=== PATIENT | male | born 1950 | race Caucasian/White ===

== ENCOUNTER → 2016-09-22 | Outpatient (CLI) | payer OTHER ==
--- NOTE | 2016-09-22 10:57 | KCIC ---
MRI right knee dated 09/22/2016 10:15 AM Indication: Anterior knee pain since May , pain worsening over the last couple weeks. No known injury. Pain Comparison: No comparison is available. Technique: Routine multiplanar multisequence imaging performed. No contrast administered. Findings: Bone marrow signal is homogeneous. No marrow edema. Mild tricompartmental hypertrophic change with thinning and surface irregularity of the articular cartilage no full-thickness osteochondral defect. Small joint effusion. No significant popliteal cyst. No intra-articular loose body. Anterior cruciate and posterior cruciate ligaments are intact. Medial and lateral collateral complexes are intact. Iliotibial band, popliteus tendon and pes anserine complex within normal limits. Quadriceps and patellar tendon are intact. There is mild increased signal within the substance of the proximal and distal patellar tendon. No abnormality of the medial or lateral retinaculum. There is an oblique linear defect at the medial meniscal body that extends to the tibial articular surface on several coronal slices. There is also blunting of the free edge of the medial meniscal body. Small horizontal oblique component and at the posterior horn extends to the tibial articular surface. Anterior horn is intact. There is some linear increased signal at the anterior horn of lateral meniscus that does not definitely reach an articular surface. Posterior horn and body are intact. IMPRESSION: 1. Complex tear posterior horn and body of medial meniscus. 2. Linear signal at the anterior horn of the lateral meniscus does not meet strict criteria for meniscal tear and is likely related to early mucoid degeneration. 3. Mild tricompartmental degenerative arthrosis and chondromalacia. 4. Small joint effusion. 5. Mild patellar tendinosis. Electronically signed by: Flaco Lora MD (09/22/2016 10:53 AM) [facility]
== END | disposition home or self-care (01) ==
LOC: KCIC MRI 09:48
DX: M17.11 Unilateral primary osteoarthritis, right knee (principal); M94.261 Chondromalacia, right knee; M25.461 Effusion, right knee
CPT/HCPCS: 73721

== ENCOUNTER → 2017-07-07 | Outpatient (CLI) | payer OTHER ==
[2017-07-08] MEDS: REGADENOSON 0.4 MG/5 ML DISP.SYRIN. IV (09:14)
== END | disposition home or self-care (01) ==
LOC: NM 07:21
DX: I48.91 Unspecified atrial fibrillation (principal); I51.7 Cardiomegaly; E66.9 Obesity, unspecified
CPT/HCPCS: 78452; 96374; 96375; A9500; J2785

== ENCOUNTER → 2017-07-08 | Outpatient (CLI) | payer OTHER | END | disposition home or self-care (01) | LOC: ECHO 07:53 | DX: I48.91 Unspecified atrial fibrillation (principal); E66.01 Morbid (severe) obesity due to excess calories; I27.20 Pulmonary hypertension, unspecified; R06.00 Dyspnea, unspecified | CPT/HCPCS: 93017; 93306; 96376 ==

== ENCOUNTER 2017-08-31 10:08 | Day surgery (SDC) | payer OTHER ==
[~2017-08-31 10:08] MED LIST: LIDOCAINE 1% PF 2 ML VIAL. ID; MORPHINE SULFATE 2 MG/ML DISP.SYRIN. IV; ONDANSETRON PF 4 MG/2 ML VIAL. IV; PROCHLORPERAZINE 10 MG/2 ML VIAL. IV; fentaNYL PF VIAL 100 MCG/2 ML VIAL IV
[2017-08-31] MEDS: IV RINGERS,LACTATED 1000ML 1,000 ML IV (10:45)
[2017-08-31] MEDS ORDERED: PROPOFOL 20 ML IV (11:21)
== END 2017-08-31 12:35 | disposition home or self-care (01) ==
LOC: SURG 10:08
DX: I48.91 Unspecified atrial fibrillation (principal); I10 Essential (primary) hypertension; E78.00 Pure hypercholesterolemia, unspecified; G47.33 Obstructive sleep apnea (adult) (pediatric); I51.7 Cardiomegaly; M10.9 Gout, unspecified; I87.2 Venous insufficiency (chronic) (peripheral); Z90.49 Acquired absence of other specified parts of digestive tract; Z79.899 Other long term (current) drug therapy; Z72.89 Other problems related to lifestyle; Z98.890 Other specified postprocedural states
CPT/HCPCS: 92960; 93005; J2704

== ENCOUNTER → 2017-10-20 | Day surgery (SDC) | payer OTHER ==
[~2017-10-20] MED LIST changes: +ALLO300T PO; +AMLO10TA2 PO; +ATOR10TA60 PO; +DABI150C PO; +FURO40TA4 PO; +GLUC1CAP48 PO; +IV RINGERS,LACTATED 1000ML 1,000 ML IV SCH; -LIDOCAINE 1% PF 2 ML VIAL. ID; +LIDOCAINE 2% PF Vial for OR 5 ML VIAL. ONE; +METO-239 PO; -MORPHINE SULFATE 2 MG/ML DISP.SYRIN. IV; +MULT1TAB52 PO; +OLME40TA12 PO; +OMEG-165 PO; -ONDANSETRON PF 4 MG/2 ML VIAL. IV; -PROCHLORPERAZINE 10 MG/2 ML VIAL. IV; +PROPOFOL 40 ML IV ONE; +TRIA1TAB5 PO; +VALS320T2 PO; -fentaNYL PF VIAL 100 MCG/2 ML VIAL IV
[2017-10-20 08:19] VITALS: BP 118/68
== END | disposition home or self-care (01) ==
LOC: ENDOS 06:18
PROVIDERS: ATTEND Internal Medicine Gastroenterology
DX: Z12.11 Encounter for screening for malignant neoplasm of colon (principal); K64.0 First degree hemorrhoids; Z91.030 Bee allergy status; I10 Essential (primary) hypertension; Z85.828 Personal history of other malignant neoplasm of skin; G47.30 Sleep apnea, unspecified; Z72.89 Other problems related to lifestyle; Z79.899 Other long term (current) drug therapy; Z90.49 Acquired absence of other specified parts of digestive tract; I48.91 Unspecified atrial fibrillation
CPT/HCPCS: 45378; J2001; J2704

== ENCOUNTER → 2018-09-28 | Outpatient (CLI) | payer MEDICARE, OTHER ==
[2017-10-20 08:19] VITALS: BP 118/68
[~2018-09-28] MED LIST changes: -AMLO10TA2 PO; +AMLO10TA8 PO; -IV RINGERS,LACTATED 1000ML 1,000 ML IV SCH; -LIDOCAINE 2% PF Vial for OR 5 ML VIAL. ONE; -PROPOFOL 40 ML IV ONE
--- NOTE | 2018-09-28 10:17 | CARD ---
MR#: [id number] Date of Study: 09/28/2018 Ordering Physician: CHRISTI SANTIAGO, Referring Physician: CHRISTI SANTIAGO, Tech: Angle Black APPROVED REPORT EXAM: Two-dimensional and M-mode echocardiogram with Doppler and color Doppler. Other Information Quality : AverageHR: 56bpm Technically limited study due to body habitus. INDICATION Atrial Fibrillation RISK FACTORS Hypertension 2D DIMENSIONS RVDd2.8 (2.9-3.5cm)Left Atrium(2D)4.5 (1.6-4.0cm) IVSd1.5 (0.7-1.1cm)Aortic Root(2D)3.4 (2.0-3.7cm) LVDd5.8 (3.9-5.9cm)LVOT Diameter2.2 (1.8-2.4cm) PWd1.3 (0.7-1.1cm)LVDs3.6 (2.5-4.0cm) FS (%) 38.6 %SV115.3 ml LVEF(%)68.1 (>50%) Aortic Valve AoV Peak Matt.162.8cm/sAoV VTI36.7cm AO Peak GR.10.6mmHgLVOT Peak Matt.101.9cm/s LVOT VTI 24.95cmAO Mean GR.6mmHg DILAN (VMAX)1.85mw5EEI (VTI)2.55cm2 Mitral Valve MV E Etkjiykp93.1cm/sMV DECEL OCUN088yw MV A Eyedhnva88.8cm/sMV RIS80du E/A Ratio1.1MVA (PHT)3.61cm2 TDI E/Lateral E'7.4E/Medial E'5.4 Pulmonary Valve PV Peak Ntkhcpsp927.1cm/sPV Peak Grad.4mmHg Tricuspid Valve TR P. Dmchvoej418aa/sRAP DIFWWBMI6kfWx TR Peak Gr.80yrLiWUFX91qzZp Pulmonary Vein S1 Zczkwpah79.7cm/sD2 Ijxtgsfv34.2cm/s PVa feccoxvl421tlvn LEFT VENTRICLE The left ventricle is normal size. There is moderate concentric left ventricular hypertrophy. The lef t ventricular systolic function is normal and the ejection fraction is within normal range. The Eject ion Fraction is 50-55%. There is grossly normal LV segmental wall motion. Transmitral Doppler flow pa ttern is Grade II-pseudonormal filling dynamics. RIGHT VENTRICLE The right ventricle is borderline dilated. There is normal right ventricular wall thickness. The righ t ventricular systolic function is normal. ATRIA The left atrium is moderately dilated. The right atrium is mildly dilated. The interatrial septum is intact with no evidence for an atrial septal defect or patent foramen ovale as noted on 2-D or Dopple r imaging. AORTIC VALVE The aortic valve is normal in structure and function. Doppler and Color Flow revealed no significant aortic regurgitation. There is no significant aortic valvular stenosis. MITRAL VALVE The mitral valve is normal in structure and function. There is no evidence of mitral valve prolapse. There is no mitral valve stenosis. Doppler and Color-flow revealed trace mitral regurgitation. TRICUSPID VALVE The tricuspid valve is normal in structure and function. Doppler and Color Flow revealed trace tricus pid regurgitation with an estimated PAP of 26 mmHg. There is no tricuspid valve stenosis. PULMONIC VALVE The pulmonic valve is not well visualized. Doppler and Color Flow revealed no pulmonic valvular regur gitation. There is no pulmonic valvular stenosis. GREAT VESSELS The aortic root is normal in size. The IVC is normal in size and collapses >50% with inspiration. PERICARDIAL EFFUSION There is no evidence of significant pericardial effusion. Critical Notification Critical Value: No <Conclusion> The left ventricular systolic function is normal and the ejection fraction is within normal range. Th e Ejection Fraction is 50-55%. There is grossly normal LV segmental wall motion. Signed by : Praful Michael, Electronically Approved : 09/28/2018 10:17:03
== END | disposition home or self-care (01) ==
LOC: ECHO 07:38
PROVIDERS: ATTEND Internal Medicine Cardiovascular Disease
DX: I51.7 Cardiomegaly (principal); I48.91 Unspecified atrial fibrillation
CPT/HCPCS: 93306

== ENCOUNTER → 2019-10-12 | Outpatient (CLI) | payer MEDICARE, OTHER ==
[2017-10-20 08:19] VITALS: BP 118/68
[~2019-10-12] MED LIST changes: +MULT-445 PO; -MULT1TAB52 PO
--- NOTE | 2019-10-13 09:03 | CARD ---
MR#: [id number] Date of Study: 10/12/2019 Ordering Physician: CHRISTI SANTIAGO, Referring Physician: CHRISTI SANTIAGO, Tech: Angle Black APPROVED REPORT EXAM: Two-dimensional and M-mode echocardiogram with Doppler and color Doppler. Other Information Quality : FairHR: 54bpm Technically limited study due to body habitus. INDICATION Atrial Fibrillation RISK FACTORS Hypertension Hyperlipidemia 2D DIMENSIONS RVDd4.8 (2.9-3.5cm)Left Atrium(2D)4.8 (1.6-4.0cm) IVSd1.4 (0.7-1.1cm)Aortic Root(2D)3.8 (2.0-3.7cm) LVDd5.8 (3.9-5.9cm)LVOT Diameter2.1 (1.8-2.4cm) PWd1.2 (0.7-1.1cm)LVDs2.9 (2.5-4.0cm) FS (%) 49.4 %SV130.8 ml Aortic Valve AoV Peak Matt.156.2cm/sAoV VTI30.7cm AO Peak GR.9.8mmHgLVOT Peak Matt.75.5cm/s LVOT VTI 17.96cmAO Mean GR.5mmHg DILAN (VMAX)1.23yp6XGP (VTI)2.00cm2 Mitral Valve MV E Agzrquuy33.4cm/sMV DECEL GQWZ140lg MV A Irqnaywq50.7cm/sMV E Mean Gr.1mmHg MV DJD25xaO/A Ratio0.9 MVA (PHT)3.16cm2 TDI E/Lateral E'9.6E/Medial E'9.8 Pulmonary Valve PV Peak Rfpozydz50.8cm/sPV Peak Grad.4mmHg Tricuspid Valve TR P. Ncfmscvo083wp/sRAP NWFQFAPE1rwNm TR Peak Gr.13ugOpDBON74tfEh Pulmonary Vein S1 Titgezxa55.8cm/sD2 Rvkopwwv49.3cm/s PVa kccqmwab967miar LEFT VENTRICLE The left ventricle is normal size. There is mild concentric left ventricular hypertrophy. The left ve ntricular systolic function is normal and the ejection fraction is within normal range. The Ejection Fraction is 55-60%. There is normal LV segmental wall motion. Transmitral Doppler flow pattern is Gra de I-abnormal relaxation pattern. RIGHT VENTRICLE The right ventricle is borderline dilated. There is normal right ventricular wall thickness. The righ t ventricular systolic function is normal. ATRIA The left atrium size is normal. The right atrium is borderline dilated. The interatrial septum is int act with no evidence for an atrial septal defect or patent foramen ovale as noted on 2-D or Doppler i maging. AORTIC VALVE The aortic valve is thickened but opens well. Doppler and Color Flow revealed no significant aortic r egurgitation. There is no significant aortic valvular stenosis. Calculated aortic valve area is 1.74 cm2 with maximum pressure gradient of 14 mmHg and mean pressure gradient of 6 mmHg. MITRAL VALVE The mitral valve is normal in structure and function. There is no evidence of mitral valve prolapse. There is no mitral valve stenosis. Doppler and Color-flow revealed trace mitral regurgitation. TRICUSPID VALVE The tricuspid valve is normal in structure and function. Doppler and Color Flow revealed trace tricus pid regurgitation with an estimated PAP of 28 mmHg. There is no tricuspid valve stenosis. PULMONIC VALVE The pulmonic valve is not well visualized. Doppler and Color Flow revealed no pulmonic valvular regur gitation. GREAT VESSELS The aortic root is normal in size. The ascending aorta is normal in size. The IVC was not visualized. PERICARDIAL EFFUSION There is no evidence of significant pericardial effusion. Critical Notification Critical Value: No <Conclusion> The left ventricle is normal size. The left ventricular systolic function is normal and the ejection fraction is within normal range. The Ejection Fraction is 55-60%. There is mild concentric left ventricular hypertrophy. Doppler and Color Flow revealed no significant aortic regurgitation. There is no significant aortic valvular stenosis. Doppler and Color-flow revealed trace mitral regurgitation. Doppler and Color Flow revealed trace tricuspid regurgitation with an estimated PAP of 28 mmHg. Signed by : Uli White MD Electronically Approved : 10/13/2019 09:03:26
== END | disposition home or self-care (01) ==
LOC: ECHO 07:39
PROVIDERS: ATTEND Internal Medicine Cardiovascular Disease
DX: I48.91 Unspecified atrial fibrillation (principal); I51.7 Cardiomegaly
CPT/HCPCS: 93306

== ENCOUNTER → 2020-07-03 | Outpatient (CLI) | payer MEDICARE, OTHER ==
[2017-10-20 08:19] VITALS: BP 118/68
[~2020-07-03] MED LIST changes: +AMLO-187 PO; -AMLO10TA8 PO
--- NOTE | 2020-07-03 14:19 | KCIC ---
MRI of the lumbar spine without contrast 07/03/2020 CLINICAL HISTORY: Low back pain which radiates down both legs. TECHNIQUE: Unenhanced T1-weighted and T2-weighted sagittal and axial and inversion recovery sagittal images of the lumbar spine were obtained. FINDINGS: Minimal S-shaped curvature of the thoracolumbar spine is seen. Degenerative signal changes are seen involving all of the disks of the lumbar spine. Degenerative signal changes are seen within the marrow surrounding these discs. The conus medullaris is normal morphology, position, and signal c haracteristics. Increased signal intensity which may reflect edema associated with a strain type injury is seen withi n the left paraspinal musculature on the T2-weighted and inversion recovery images. At the L1-2 disc space there is a mild generalized disc bulge. Degenerative changes are seen involvin g the facet joints bilaterally. These findings do not result in significant central spinal canal or n eural foraminal stenosis. At the L2-3 disc space there is a mild generalized disc bulge. Degenerative changes are seen involvin g the facet joints bilaterally. There is mild ligamentum flavum hypertrophy bilaterally. There are sm all facet joint effusions bilaterally. These findings when combined result in mild central spinal can al stenosis. No neural foraminal stenosis is seen. At the L3-4 disc space there is a mild generalized disc bulge. Degenerative changes are seen involvin g the facet joints bilaterally. There are small facet joint effusions bilaterally. There is mild liga mentum flavum hypertrophy bilaterally. There is prominence of the posterior epidural fat. These findi ngs when combined result in mild central spinal canal stenosis. No neural foraminal stenosis is seen. At the L4-5 disc space there is a mild to moderate generalized disc bulge. Superimposed on this disc bulge is a focal central disc herniation. This measures 6 mm in AP diameter. Degenerative changes are seen involving the facet joints bilaterally. There is moderate ligamentum flavum hypertrophy bilater ally. There are small facet joint effusions bilaterally. These findings when combined result in sever e central spinal canal stenosis. No neural foraminal stenosis is seen. At the L5-S1 disc space there is a minimal generalized disc bulge. Degenerative changes are seen invo lving the facet joints bilaterally. These findings when combined do not result in significant central spinal canal or neural foraminal stenosis. IMPRESSION: The changes of degenerative disc disease are seen throughout the lumbar spine. These find ings result in mild central spinal canal stenosis at L2-3 and L3-4 and severe central spinal canal st enosis at L4-5. No neural foraminal stenosis is seen. Electronically signed by: Go Landin MD (07/03/2020 2:16 PM) [id number]
== END ==
LOC: KCIC MRI 09:55
PROVIDERS: ATTEND Physician Assistant
DX: M47.27 Other spondylosis with radiculopathy, lumbosacral region (principal); M48.061 Spinal stenosis, lumbar region without neurogenic claudication; G57.90 Unspecified mononeuropathy of unspecified lower limb; M51.36 Other intervertebral disc degeneration, lumbar region
CPT/HCPCS: 72148

== ENCOUNTER → 2020-07-24 | Outpatient (CLI) | payer MEDICARE, OTHER ==
[2017-10-20 08:19] VITALS: BP 118/68
--- NOTE | 2020-07-24 12:58 | PDOC1 ---
INITIAL PAIN CONSULT DATE OF SERVICE: DOS: DATE: 07/24/20 TIME: 12:51 CHIEF COMPLAINT: Chief Complaint: Low back and bilateral lower extremity pain HISTORY OF PRESENT ILLNESS: 69-year-old male presents with history of pain low back bilateral lower extremities right greater than left present for about 3 months not sure if any specific injury or accident that he is aware of but he was on vacation and slept in a hotel bed which was very soft and seemed to aggravate his pain in his back and his legs significantly since that time about 3 months ago is beginning worse patient reports his pain in the low back bilateral lower extremities rating the posterior gluteus posterior thighs lateral thighs anterior thighs medial thighs as well as the soles of the feet and the top of the feet at x2 with some numbness and tingling in both of the feet patient reports is worse with walking standing changing positions bending or stooping also worse with prolonged sitting but generally better with laying down generally is not awakening from sleep side effects bowel bladder control but does affect his ability to walk average not use any assistive devices. Patient has had some chiropractic treatment in the past and this has been helpful has not had any recently however but has been doing some stretching and strengthening exercises on his own daily at least twice a day which she feels helps mildly patient has taken Flexeril which was not helpful as well patient reports his disability rating is a nine on a scale of 10 family home responsibilities nine with recreation sexual behavior six with social activity occupation and life support activities. Patient reports no loss of motor function but significant fatigability and weakness in the lower extremities with ambulation. Patient scribes pain is constant the back shooting in the legs with numbness and tingling in the feet radiating as described again worse on the right than the left and present bilaterally. Patient had MRI scan lumbar spine showing degenerative disc disease throughout the lumbar spine with finding and mild central spinal canal stenosis at L2-3 and L3-4 and severe central spinal canal stenosis L4-5 with moderate generalized disc bulge at L4-5 with a focal disc herniation centrally. PAST MEDICAL HISTORY: PMH: Arthritis, atrial fibrillation hypertension, basal cell carcinoma PREVIOUS SURGERIES: Past Surgical Hx: Bilateral catheter extractions and cholecystectomy CURRENT MEDICATIONS: Current Meds: Active Scripts Medications Dose Route/Sig Max Daily Dose Days Date Category Benicar (Olmesartan Medoxomil) 40 Mg Tablet 40 Mg PO DAILY 10/20/17 Reported Pradaxa (Dabigatran Etexilate Mesylate) 150 Mg Capsule 1 Cap PO BID 08/30/17 Reported Multivitamins (Multivitamin) 1 Each Tablet 1 Each PO 07/07/17 Reported Fish Oil 1,000 mg Softgel ([place]-3S/Dha/Epa/Fish Oil) 1 Each Capsule 1 Each PO 07/07/17 Reported Glucosamine & Chondroitin Cap (Gluc 2KCL/Chondr/Oleksandr Hy/Hy Ac) 1 Each Capsule 1 Each PO 07/07/17 Reported Metoprolol Succinate ( Xl ) (Metoprolol Succinate) 25 Mg Tab.er.24h 25 Mg PO DAILY 07/07/17 Reported Allopurinol 300 Mg Tablet 300 Mg PO DAILY 07/07/17 Reported Triamterene-Hctz 75-50 Mg Tab (Triamterene/Hydrochlorothiazid) 1 Each Tablet 1 Tab PO DAILY 07/07/17 Reported Atorvastatin Calcium 10 Mg Tablet 10 Mg PO DAILY 07/07/17 Reported Furosemide 40 Mg Tablet 40 Mg PO DAILY 07/07/17 Reported Amlodipine Besylate 10 Mg Tablet 10 Mg PO DAILY 07/07/17 Reported ALLERGIES; Allergies: Coded Allergies: bee venom protein (honey bee) (Verified Allergy, Severe, ANAPHYLAXIS, 10/20/17) FAMILY HISTORY: Family Hx: No major medical problems or conditions that patient is aware of. SOCIAL HISTORY: Social Hx: Patient drinks alcohol occasionally but only socially does not smoke does not use any illegal illicit or recreational drugs is lives with his spouse and one child living home locally in [facility] REVIEW OF SYSTEMS: ROS: Positive for those items mentioned in history of present illness, all systems are reviewed, otherwise negative ,and are complete full and well-documented on patient's chart. PHYSICAL EXAM: VS: Blood pressure is 136/74 pulse 62 respirations 18 temperature 98.5 F height 6 foot three inches weight is 384 pounds PE: PHYSICAL EXAMINATION: GENERAL: The patient is awake, alert, oriented, appropriate, very pleasant demeanor HEENT: Shows normocephalic, atraumatic. Extraocular movements are intact and symmetrical. Oral cavity: Mucous membranes moist and pink. Dentition is intact. NECK: Shows anterior throat supple without palpable lymphadenopathy noted. Swallow reflex symmetrical. CHEST: Shows normal on inspection. Breath sounds are clear bilaterally, distant but no rales rhonchi or wheezes auscultated. HEART: Shows S1, S2 clear. No murmurs auscultated. ABDOMEN: Soft, nontender, nondistended. No palpable organomegaly is noted. No rebound or guarding demonstrated. BACK: Shows spine grossly in the midline. Normal-appearing cervical lordotic curvature. There is mildly increased thoracic kyphosis, some flattening of the lumbar lordotic curvature. Lumbar paraspinous muscles show symmetrical on inspection, on palpation shows some moderate tenderness diffusely throughout the upper, middle and lower distribution of the paraspinous muscles bilaterally and also into the lower thoracic paraspinous musculature, firm and tender, but without specific trigger points, without radiation of pain. The patient has good rotational motion of the lumbar spine, both laterally as well as extension and flexion without significant difficulty. No tenderness over the spinous processes, sacrum or sacroiliac regions. EXTREMITIES: Lower extremities show deep tendon reflexes 2+ in the patellar and tendo calcaneus tendons. Motor exam is four on a scale of 5 with right dorsiflexion, extension, quadriceps and hamstring flexion and five/5 on the left. Peripheral pulses are 1+ posterior tibial. No peripheral edema is noted bilaterally. Lower extremities are warm and dry to touch, equal in color and appearance. Straight leg raise noted to be positive on the right about 45 degrees, left side is negative. Gaenslen's and Cyrus's maneuvers are negative bilaterally as well. The patient is able to stand, stand on his toes that s ignificant difficulty loss of balance, walks with a normal-appearing gait does not appear to favor the right or left lower extremity significantly and is not use any assistive device such as canes or walkers to ambulate. SKIN: Shows warm and dry, good turgor. No edema. No sores, rashes or bruising throughout. IMPRESSION: Impression: 69-year-old male with 3-month history increasing pain low back bilateral lower extremities right greater than left in a radicular fashion following L4-5 dermatomal distribution. MRI scan lumbar spine as noted Obesity Arthritis Hypertension History of atrial fibrillation Plan: Options were discussed with the patient including conservative medical management is continued physical therapies and interventional techniques. Patient likes interventional techniques. We discussed a lumbar epidural steroid injection using description as well as anatomical models to describe the procedure. We will check with patient's key carrier to see if it is cleared to hold his Pradaxa for 2 days prior to potential injection. If this is deemed safe and appropriate we will have him hold this and return for lumbar epidural steroid injection at that time. In the meantime, patient will continue with stretching strength exercise at home as well as oral analgesics and anti- inflammatories as currently. Patient also given prescription for hydrocodone 5 mg with instructions and side effects to be aware of discussed as well. ELENA DELCID MD Jul 24, 2020 12:58
== END | disposition home or self-care (01) ==
LOC: PNCL 08:44
PROVIDERS: ATTEND Anesthesiology
DX: M54.5 Low back pain (principal); M79.605 Pain in left leg; M79.604 Pain in right leg; M19.90 Unspecified osteoarthritis, unspecified site; I48.91 Unspecified atrial fibrillation; E66.9 Obesity, unspecified; I10 Essential (primary) hypertension; E78.00 Pure hypercholesterolemia, unspecified; M10.9 Gout, unspecified; G47.30 Sleep apnea, unspecified; Z90.49 Acquired absence of other specified parts of digestive tract; Z98.890 Other specified postprocedural states; Z79.899 Other long term (current) drug therapy; Z87.891 Personal history of nicotine dependence; Z88.8 Allergy status to other drugs, medicaments and biological substances
CPT/HCPCS: G0463

== ENCOUNTER → 2020-08-09 | Outpatient (CLI) | payer MEDICARE, OTHER ==
[2017-10-20 08:19] VITALS: BP 118/68
[~2020-08-09] MED LIST changes: +HYDR-2761 PO; +IOHEXOL 180 MG/ML 10 ML VIAL. ONE; +methylPREDNISolone ACETATE 40 MG/ML VIAL. ONE; +methylPREDNISolone ACETATE 80 MG/ML VIAL. ONE
--- NOTE | 2020-08-09 08:49 | PDOC ---
Progress Note - Pain Clinic Date of Service: DOS: DATE: 08/09/20 TIME: 08:46 Diagnosis: Dx: Lumbar radiculopathy with lumbar degenerative disc disease lumbar spinal stenosis and lumbar herniated disc History or Present Illness: HPI: 69-year-old male returns for follow-up status post initial evaluation and clearance to hold his Pradaxa has been off this now for 3 days and would like to proceed with a lumbar epidural steroid injection and we had discussed earlier. Patient reports still significant pain low back bilateral lower extremities posterior gluteus posterior lateral thigh lateral anterior thighs anteromedial thighs medial calves posterior calves and the soles of the feet bilaterally patient reports that sharp and stabbing the back radiating shooting lower extremities rated as a 10 on scale 10 is worse over the past week 8 on average 6 its least and is a 7 today. Patient reports no new motor or sensory deficits no new bowel or bladder incontinence still waking from sleep about once every 6 hours or so worse with walking standing better with sitting or laying down. Physical Exam: VS: Blood pressure is 130/69 pulse 96 respirations 18 temperature 90.7 F height is 75 inches weight is 386 pounds PE: PHYSICAL EXAMINATION: GENERAL: The patient is awake, alert, oriented, appropriate, very pleasant demeanor HEENT: Shows normocephalic, atraumatic. Extraocular movements are intact and symmetrical. Oral cavity: Mucous membranes moist and pink. Dentition is intact. NECK: Shows anterior throat supple without palpable lymphadenopathy noted. Swallow reflex symmetrical. CHEST: Shows normal on inspection. Breath sounds are clear bilaterally, distant but no rales or rhonchi. HEART: Shows S1, S2 clear. No murmurs auscultated. ABDOMEN: Soft, nontender, nondistended, obese. BACK: Shows spine grossly in the midline. Normal-appearing cervical lordotic curvature. There is slightly increased thoracic kyphosis, some minor flattening of the lumbar lordotic curvature. Lumbar paraspinous muscles show symmetrical on inspection, on palpation shows some moderate tenderness diffusely throughout the upper, middle and lower distribution of the paraspinous muscles without specific trigger points, without radiation of pain. The patient has good rotational motion of the lumbar spine, both laterally as well as extension and flexion without significant difficulty. EXTREMITIES: Lower extremities show deep tendon reflexes 2+ in the patellar and tendo calcaneus tendons. Motor exam is 4 on a scale of 5 with right dorsiflexion, extension, quadriceps and hamstring flexion and 5/5 on the left. Peripheral pulses are 1+ posterior tibial. No peripheral edema is noted bilaterally. Lower extremities are warm and dry to touch, equal in color and appearance. SKIN: Shows warm and dry, good turgor. No edema. No sores, rashes or bruising throughout. Procedure: Procedure: Options were discussed with the patient. Patient chart was reviewed his current medication regimen updated current review of systems updated today as well. We will proceed with a lumbar epidural steroid injection today with fluoroscopic guidance. Risks were discussed including but not limited to: Bleeding, infection, possibility of epidural hematoma and subsequent neurological compromise, dural puncture, headaches, spinal cord and/or nerve damage, side effects of steroid medication, and poor results regarding pain control. Patient understands and wished to proceed. Patient return to the clinic in [facility] 2 weeks for follow-up, was counseled as to return appointment activity level and side effects beware. Patient will restart his Pradaxa tomorrow August 10, 2020. Medication Injected: Med Injected: Procedure is lumbar epidural steroid injection under local anesthetic using sterile prep and drape at the L4-5 level using C-arm fluoroscopic guidance in both AP and lateral views medications injected is 120 mg Depo-Medrol +10mL preservative-free normal saline and 2 mL contrast- condition at discharge is stable patient tolerated procedure well had no complications. Condition at Discharge: Condition at Discharge: Condition at discharge stable, patient already procedure well and had no complications. ELENA DELCID MD Aug 09, 2020 08:49
--- NOTE | 2020-08-09 08:49 | PDOC4 ---
PROCEDURE Procedure Patient was consented for lumbar epidural steroid injection. Risks were dis cussed including but not limited to: Bleeding, infection, possibility of epidural hematoma and subsequent neurological compromise, dural puncture, headaches, spinal cord and/or nerve damage, side effects of steroid medication, and poor results regarding pain control. Patient understands and wished to proceed. Procedure is lumbar epidural steroid injection under local anesthetic using sterile prep and drape at the L4-5 level using C-arm fluoroscopic guidance in both AP and lateral views medications injected is 120 mg Depo-Medrol +10mL preservative-free normal saline and 2 mL contrast- condition at discharge is stable patient tolerated procedure well had no complications. ELENA DELCID MD Aug 09, 2020 08:49
== END | disposition home or self-care (01) ==
LOC: PNCL 08:19
PROVIDERS: ATTEND Anesthesiology
DX: M51.16 Intervertebral disc disorders with radiculopathy, lumbar region (principal); M48.061 Spinal stenosis, lumbar region without neurogenic claudication; I10 Essential (primary) hypertension; E78.00 Pure hypercholesterolemia, unspecified; I48.91 Unspecified atrial fibrillation; E66.9 Obesity, unspecified; G47.30 Sleep apnea, unspecified; M19.90 Unspecified osteoarthritis, unspecified site; M10.9 Gout, unspecified; Z72.89 Other problems related to lifestyle; Z88.8 Allergy status to other drugs, medicaments and biological substances; Z79.899 Other long term (current) drug therapy; Z98.890 Other specified postprocedural states
CPT/HCPCS: 62323; J1030; J1040; Q9965

== ENCOUNTER → 2020-08-30 | Outpatient (CLI) | payer MEDICARE, OTHER ==
[2017-10-20 08:19] VITALS: BP 118/68
--- NOTE | 2020-08-30 08:27 | PDOC ---
Progress Note - Pain Clinic Date of Service: DOS: DATE: 08/30/20 TIME: 08:24 Diagnosis: Dx: Lumbar radiculopathy with lumbar degenerative disc disease lumbar spinal stenosis and lumbar herniated disc History or Present Illness: HPI: 69-year-old male returns for follow-up status post lumbar epidural steroid injection x1. Patient was about 90% improvement for the first 2 to 2-1/2 weeks or is increasing his activity with greater ease and comfort walking greater distances doing household activities travel with greater ease sleeping better at night patient reports still is not awakening from sleep the pains are returning now over the past few days in the low back and right greater than left lower extremity but bilaterally across low back in the posterior gluteus and hips lateral thighs anterior thighs medial thighs patient reports it is usually only noticeable when he is walking otherwise doing much better patient reports an 8 on scale 10 is worse over the past week 6 on average 3 at its least and is a 6 today patient describes the pain is dull and tingling sometimes sharp and radiating can be constant with walking also some numbness in the feet as well as still present but the pain in the back and the legs much improved patient reports no new motor or sensory deficits no bowel or bladder incontinence. Physical Exam: VS: Blood pressure is 136/69 pulse 59 respirations 18 temperature 98.5 F height is 75 inches weight is 383 pounds PE: PHYSICAL EXAMINATION: GENERAL: The patient is awake, alert, oriented, appropriate, very pleasant in demeanor HEENT: Shows normocephalic, atraumatic. Extraocular movements are intact and symmetrical. Oral cavity: Mucous membranes moist and pink. Dentition is intact. NECK: Shows anterior throat supple without palpable lymphadenopathy noted. Swallow reflex symmetrical. CHEST: Shows normal on inspection. Breath sounds are clear bilaterally, distant but no rales or rhonchi. HEART: Shows S1, S2 clear. No murmurs auscultated. ABDOMEN: Soft, nontender, nondistended, obese. BACK: Shows spine grossly in the midline. Normal-appearing cervical lordotic curvature. There is slightly increased thoracic kyphosis, some minor flattening of the lumbar lordotic curvature. Lumbar paraspinous muscles show symmetrical on inspection, on palpation shows some moderate tenderness diffusely throughout the upper, middle and lower distribution of the paraspinous muscles, but without specific trigger points, without radiation of pain. The patient has good rotational motion of the lumbar spine, both laterally as well as extension and flexion without significant difficulty. EXTREMITIES: Lower extremities show deep tendon reflexes 2+ in the patellar and tendo calcaneus tendons. Motor exam is 4 on a scale of 5 with right d orsiflexion, extension, quadriceps and hamstring flexion and 5/5 on the left. Peripheral pulses are 1+ posterior tibial. No peripheral edema is noted bilaterally. Lower extremities are warm and dry to touch, equal in color and appearance. SKIN: Shows warm and dry, good turgor. No edema. No sores, rashes or bruising throughout. Procedure: Procedure: Options were discussed with the patient. Patient chart reviews his current medication regimen updated current review of systems updated today as well. We will proceed with second in the series lumbar epidural steroid injection stable fluoroscopic guidance. Risks were discussed including but not limited to: Bleeding, infection, possibility of epidural hematoma and subsequent neurological compromise, dural puncture, headaches, spinal cord and/or nerve damage, side effects of steroid medication, and poor results regarding pain control. Patient understands and wished to proceed. Patient will return to the clinic in approximate 2 weeks for follow-up, was counseled as to return appointment activity level and side effects to be aware of. Medication Injected: Med Injected: Procedure is lumbar epidural steroid injection under local anesthetic using s terile prep and drape at the L4-5 level using C-arm fluoroscopic guidance in both AP and lateral views medications injected is 120 mg Depo-Medrol +10mL preservative-free normal saline and 2 mL contrast- condition at discharge is stable patient tolerated procedure well had no complications. Condition at Discharge: Condition at Discharge: Condition at discharge is stable, patient alert the procedure well and had no complications. ELENA DELCID MD Aug 30, 2020 08:27
--- NOTE | 2020-08-30 08:28 | PDOC4 ---
Procedure Note: Procedure Note: Patient was consented for lumbar epidural steroid injection. Risks were discussed including but not limited to: Bleeding, infection, possibility of epidural hematoma and subsequent neurological compromise, dural puncture, headaches, spinal cord and/or nerve damage, side effects of steroid medication, and poor results regarding pain control. Patient understands and wished to proceed. Procedure is lumbar epidural steroid injection under local anesthetic using sterile prep and drape at the L4-5 level using C-arm fluoroscopic guidance in both AP and lateral views medications injected is 120 mg Depo-Medrol +10mL preservative-free normal saline and 2 mL contrast- condition at discharge is stable patient tolerated procedure well had no complications. ELENA DELCID MD Aug 30, 2020 08:28
== END | disposition home or self-care (01) ==
LOC: PNCL 07:50
PROVIDERS: ATTEND Anesthesiology
DX: M51.16 Intervertebral disc disorders with radiculopathy, lumbar region (principal); M48.061 Spinal stenosis, lumbar region without neurogenic claudication; I10 Essential (primary) hypertension; E78.00 Pure hypercholesterolemia, unspecified; I48.91 Unspecified atrial fibrillation; E66.9 Obesity, unspecified; M19.90 Unspecified osteoarthritis, unspecified site; M10.9 Gout, unspecified; Z85.828 Personal history of other malignant neoplasm of skin; Z90.49 Acquired absence of other specified parts of digestive tract; Z98.890 Other specified postprocedural states; Z72.89 Other problems related to lifestyle; Z88.8 Allergy status to other drugs, medicaments and biological substances
CPT/HCPCS: 62323; J1030; J1040; Q9965

== ENCOUNTER → 2020-09-20 | Outpatient (CLI) | payer MEDICARE, OTHER ==
[2017-10-20 08:19] VITALS: BP 118/68
--- NOTE | 2020-09-20 08:43 | PDOC ---
Progress Note - Pain Clinic Date of Service: DOS: DATE: 09/20/20 TIME: 08:40 Diagnosis: Dx: Lumbar radiculopathy with lumbar degenerative disease lumbar spinal stenosis and lumbar herniated disc History or Present Illness: HPI: 69-year-old male returns for follow-up status post lumbar epidural steroid injection x2. Patient reports about 80% improvement progressively getting better with each injection patient reports pain is still present in the feet primarily with some numbness and tingling also with walking greater than about 15 to 20 minutes he has to sit and rest patient reports he is doing better than he was but still significant pain in the low back bilateral lower extremities posterior gluteus posterior lateral thigh lateral anterior thigh anteromedial thigh medial lower leg and numbness and tingling in the feet bilaterally patient reports he is better with sitting or laying down generally is not awakening from sleep at night reports no bowel or bladder incontinence. Patient reports still some fatigability however in the lower extremities with walking and ambulating. Patient reports he is still taking hydrocodone but only sparingly since his last injection is not needed as much and substituted new medication of Aleve 2 tablets [id number] twice a day which does seem to help by about 40 to 50%. Patient reports still though with walking prolonged periods the pain returns as is the numbness in the feet. Physical Exam: VS: Blood pressure is 150/79 pulse 81 respirations 18 temperature 98.1 F weight is 386 pounds PE: PHYSICAL EXAMINATION: GENERAL: The patient is awake, alert, oriented, appropriate, very pleasant in demeanor HEENT: Shows normocephalic, atraumatic. Extraocular movements are intact and symmetrical. Oral cavity: Mucous membranes moist and pink. Dentition is intact. NECK: Shows anterior throat supple without palpable lymphadenopathy noted. Swallow reflex symmetrical. CHEST: Shows normal on inspection. Breath sounds are clear bilaterally, distant but no rales rhonchi or wheezes auscultated. HEART: Shows S1, S2 clear. No murmurs auscultated. ABDOMEN: Soft, nontender, nondistended, obese. No palpable organomegaly is noted. BACK: Shows spine grossly in the midline. Normal-appearing cervical lordotic curvature. There is slightly increased thoracic kyphosis, some minor flattening of the lumbar lordotic curvature. Lumbar paraspinous muscles show symmetrical on inspection, on palpation shows some moderate tenderness diffusely throughout the upper, middle and lower distribution of the paraspinous muscles without specific trigger points, without radiation of pain. The patient has good rotational motion of the lumbar spine, both laterally as well as extension and flexion without significant difficulty. EXTREMITIES: Lower extremities show deep tendon reflexes 2 in the patellar and tendo calcaneus tendons. Motor exam is 4 on a scale of 5 with right dorsiflexion, extension, quadriceps and hamstring flexion and 5/5 on the left. Peripheral pulses are 1 posterior tibial. No peripheral edema is noted bilaterally. Lower extremities are warm and dry to touch, equal in color and appearance. SKIN: Shows warm and dry, good turgor. No edema. No sores, rashes or bruising throughout. Procedure: Procedure: Options discussed with patient. Patient chart reviewed his current medication regimen updated current review of systems updated today as well. We will proceed with a third lumbar epidural steroid injection today with fluoroscopic guidance. Risks were discussed including but not limited to: Bleeding, infection, possibility of epidural hematoma and subsequent neurological compromise, dural puncture, headaches, spinal cord and/or nerve damage, side effects of steroid medication, and poor results regarding pain control. Patient understands and wished to proceed. Patient will return to the clinic in [facility] 2 weeks for follow-up, was counseled as to return appointment active level and side effects to be aware of. Medication Injected: Med Injected: Procedure is lumbar epidural steroid injection under local anesthetic using sterile prep and drape at the L4-5 level using C-arm fluoroscopic guidance in both AP and lateral views medications injected is 120 mg Depo-Medrol +10mL preservative-free normal saline and 2 mL contrast- condition at discharge is stable patient tolerated procedure well had no complications. Condition at Discharge: Condition at Discharge: Condition at discharge is stable, patient tolerated the procedure well and had no complications. ELENA DELCID MD Sep 20, 2020 08:43
--- NOTE | 2020-09-20 08:44 | PDOC4 ---
Procedure Note: ICD 10 Code: ICD 10 Code: M54.16 M 46.07 Procedure Note: Patient was consented for lumbar epidural steroid injection with fluoroscopic guidance. Risks were discussed including but not limited to: Bleeding, infection, possibility of epidural hematoma and subsequent neurological compromise, dural puncture, headaches, spinal cord and/or nerve damage, side effects of steroid medication, and poor results regarding pain control. Patient understands and wished to proceed. Procedure is lumbar epidural steroid injection under local anesthetic using sterile prep and drape at the L4-5 level using C-arm fluoroscopic guidance in both AP and lateral views medications injected is 120 mg Depo-Medrol +10mL preservative-free normal saline and 2 mL contrast- condition at discharge is stable patient tolerated procedure well had no complications. ELENA DELCID MD Sep 20, 2020 08:44
== END | disposition home or self-care (01) ==
LOC: PNCL 08:07
PROVIDERS: ATTEND Anesthesiology
DX: M51.16 Intervertebral disc disorders with radiculopathy, lumbar region (principal); M48.061 Spinal stenosis, lumbar region without neurogenic claudication; I10 Essential (primary) hypertension; E78.00 Pure hypercholesterolemia, unspecified; I48.91 Unspecified atrial fibrillation; G47.30 Sleep apnea, unspecified; E66.9 Obesity, unspecified; M19.90 Unspecified osteoarthritis, unspecified site; M10.9 Gout, unspecified; Z90.49 Acquired absence of other specified parts of digestive tract; Z98.890 Other specified postprocedural states; Z79.899 Other long term (current) drug therapy; Z72.89 Other problems related to lifestyle; Z88.8 Allergy status to other drugs, medicaments and biological substances
CPT/HCPCS: 62323; J1030; J1040; Q9965

== ENCOUNTER → 2020-10-30 | Outpatient (CLI) | payer MEDICARE, OTHER ==
[2017-10-20 08:19] VITALS: BP 118/68
[~2020-10-30] MED LIST changes: -IOHEXOL 180 MG/ML 10 ML VIAL. ONE; -methylPREDNISolone ACETATE 40 MG/ML VIAL. ONE; -methylPREDNISolone ACETATE 80 MG/ML VIAL. ONE
--- NOTE | 2020-10-30 15:02 | CARD ---
MR#: [id number] Date of Study: 10/30/2020 Ordering Physician: CHRISTI SANTIAGO, Referring Physician: CHRISTI SANTIAGO, Tech: Angle Black, [facility] APPROVED REPORT EXAM: Two-dimensional and M-mode echocardiogram with Doppler and color Doppler. Other Information Quality : FairHR: 52bpm INDICATION Atrial Fibrillation RISK FACTORS Hypertension Hyperlipidemia 2D DIMENSIONS RVDd5.0 (2.9-3.5cm)Left Atrium(2D)5.2 (1.6-4.0cm) IVSd1.3 (0.7-1.1cm)Aortic Root(2D)3.9 (2.0-3.7cm) LVDd5.7 (3.9-5.9cm)LVOT Diameter2.3 (1.8-2.4cm) PWd1.3 (0.7-1.1cm)LVDs3.3 (2.5-4.0cm) FS (%) 42.9 %SV117.9 ml Aortic Valve AoV Peak Matt.155.0cm/sAoV VTI33.6cm AO Peak GR.9.6mmHgLVOT Peak Matt.96.0cm/s LVOT VTI 20.13cmAO Mean GR.5mmHg DILAN (VMAX)1.78hv6QPW (VTI)2.57cm2 Mitral Valve MV E Slmlfssq56.1cm/sMV DECEL [id number] MV A Fsjvyboq73.0cm/sMV OIU80lw E/A Ratio0.9MVA (PHT)3.16cm2 TDI E/Lateral E'6.8E/Medial E'8.0 Pulmonary Valve PV Peak Esfmwpml36.0cm/sPV Peak Grad.4mmHg Tricuspid Valve TR P. Lcnneyub669xn/sRAP LFFMWDTG1oeFf TR Peak Gr.26tsMcCHOG90fsIj Pulmonary Vein S1 Vsbmrzlg05.3cm/sD2 Apqzklou47.4cm/s PVa [id number] LEFT VENTRICLE The left ventricle is normal size. There is mild concentric left ventricular hypertrophy. Left ventri cular systolic function is low normal. The Ejection Fraction is estimated at 50%. There is normal LV segmental wall motion. Transmitral Doppler flow pattern is Grade I-abnormal relaxation pattern. RIGHT VENTRICLE The right ventricle is normal size. There is normal right ventricular wall thickness. The right ventr icular systolic function is normal. ATRIA The left atrium is mildly dilated. The right atrium size is normal. The interatrial septum is intact with no evidence for an atrial septal defect or patent foramen ovale as noted on 2-D or Doppler imagi ng. AORTIC VALVE The aortic valve is mildly thickened. Doppler and Color Flow revealed no significant aortic regurgita tion. There is no significant aortic valvular stenosis. Calculated aortic valve area is 2.54 cm2 with maximum pressure gradient of 12 mmHg and mean pressure gradient of 6 mmHg. MITRAL VALVE The mitral valve is normal in structure and function. There is no evidence of mitral valve prolapse. There is no mitral valve stenosis. Doppler and Color-flow revealed trace to mild mitral regurgitation . TRICUSPID VALVE The tricuspid valve is normal in structure and function. Doppler and Color Flow revealed trace tricus pid regurgitation with an estimated PAP of 28 mmHg. There is no tricuspid valve stenosis. PULMONIC VALVE The pulmonic valve is not well visualized. Doppler and Color Flow revealed trace pulmonic valvular re gurgitation. GREAT VESSELS The aortic root is borderline dilated measuring 3.8 cm. The ascending aorta is mildly dilated measuri ng 4 cm. The IVC was not visualized. PERICARDIAL EFFUSION There is no evidence of significant pericardial effusion. Critical Notification Critical Value: No <Conclusion> The left ventricle is normal size. Left ventricular systolic function is low normal. The Ejection Fraction is estimated at 50%. There is mild concentric left ventricular hypertrophy. Doppler and Color Flow revealed no significant aortic regurgitation. There is no significant aortic valvular stenosis. Doppler and Color-flow revealed trace to mild mitral regurgitation. Doppler and Color Flow revealed trace tricuspid regurgitation with an estimated PAP of 28 mmHg. Signed by : Uli White MD Electronically Approved : 10/30/2020 15:01:42
== END ==
LOC: ECHO 07:44
PROVIDERS: ATTEND Internal Medicine Cardiovascular Disease
DX: I08.0 Rheumatic disorders of both mitral and aortic valves (principal); I48.91 Unspecified atrial fibrillation
CPT/HCPCS: 93306